=== PATIENT | male | born 1940 | race Caucasian/White ===

== ENCOUNTER → 2016-12-02 | Outpatient (CLI) | payer MEDICARE, OTHER ==
[~2016-12-02] MED LIST: ACET500C5 PO; ASPI81TA3 PO; CARV6.25 PO; COU5 PO; FURO40TA4 PO; LISI2.5T59 PO; NITR4.1S2 TL; RANO10002 PO; SPIR25TA PO; ZOC10 PO
--- NOTE | 2016-12-02 15:53 | RADRPT ---
PROCEDURE: XR right knee. CLINICAL INDICATION: Knee pain TECHNIQUE: AP weightbearing, lateral weightbearing and sunrise views are available for review. COMPARISON: None available FINDINGS: There is moderate to severe osteoarthrosis involving the lateral tibial femoral compartment and mild osteoarthrosis involving the patellofemoral compartment. This is associated with joint space narrow ing, subchondral sclerosis and osteophytosis. There is a small suprapatellar joint effusion. There is otherwise normal mineralization, architecture and alignment. No fractures are identified. No osseous lesions are identified. The soft tissues are unremarkable. IMPRESSION: Moderate to severe osteoarthrosis involving the lateral tibial femoral compartment and mild osteoart hrosis involving the patellofemoral compartment. Small suprapatellar joint effusion RPTAT: HGDB .Enzo Mayfield MD, Date Time Electronically viewed and signed by .Enzo Mayfield MD, on 12/02/2016 15:53 .B/
--- NOTE | 2016-12-03 04:39 | HKNOTE ---
DATE OF SERVICE: 12/02/2016 REFERRING PHYSICIAN: Dr. Alejandro Hughes, [address], [address], [place], [place] , [address]. MAIN COMPLAINT: Pain in the right knee. HISTORY OF MAIN COMPLAINT: The patient is a 76-year-old male who complains of pain in his right kne e. The problem started about 2 years ago when he had a syncopal attack and fell on the ground twist ing his knee. His knee has "never been the same." He was taken to a local hospital, the knee was x -rayed and he was found to have no fractures, but he was told to see an orthopedic surgeon. He saw his winch truck operator, Dr. Hughes, who aspirated the knee and gave him a cortisone injection. This helped a great deal for about 4 months and then the pain started up again. The patient has had an extensi ve course of physical therapy which did not help very much. Dr. Hughes now referred him to me for an orthopedic evaluation. PRESENT COMPLAINTS: The right knee swells. Occasional whole leg swells. The leg feels very unstab le about twice a week. The knee does not lock. The patient gets pain with every step that he takes and he has never felt pain. Once he gets started, he can keep going for quite a while but he has p ain with every step. He uses a cane most of the time. The pain is aggravated by walking and weight bearing and stair climbing. He does get rest pain indicating that the pain wakes him up at night. He has been taking Tramacet for the pain. He has a long history of problems with his lower back. Fede mcdonnell is diagnosed as having spinal arthritis. He has had a lumbar laminectomy and a cervical laminecto my. He gets numbness and tingling in both legs. He limps all the time. The right leg feels shorter than the left leg. He cannot clip his toenails or tie his shoelaces on the right side. SPORTING ACTIVITIES: Sailing. PAST ORTHOPEDIC HISTORY: 1. Lumbar laminectomy 2007 at [facility]. 2. Cervical laminectomy 09/2015 at [place]. PRIOR CORTISONE INTAKE: Only as above. ALCOHOL INTAKE: Two glasses of wine daily or a cocktail. OTHER JOINT PROBLEMS: Right shoulder. BLOOD TESTS FOR ARTHRITIS: None. PRIOR INJURIES TO HIPS OR KNEES: Only as above. WORK STATUS: The patient is retired. PAST MEDICAL HISTORY: Entirely negative other than for his heart disease. PAST SURGICAL HISTORY: 1. Atrioseptal defect repair in 1993. 2. Lumbar spine surgery in 2008. 3. Cervical spine surgery in 2009. 4. Pacemaker implant 2014. DRUG ALLERGIES: NONE. MEDICATIONS: 1. Lisinopril 2.5 mg a.m. 2. Aspirin 81 mg daily. 3. Furosemide 40 mg a daily in the morning. 4. Spironolactone 25 mg daily in the a.m. 5. Carvedilol 6.2 mg twice a day. 6. Warfarin 5 mg once a day. 7. Simvastatin 10 mg once a day. 8. Ranexa 1000 mg twice a day. NOTE: All these medications are related to his heart disease. PRIOR MAJOR INJURIES: None. FAMILY HISTORY: Father at 91. Mother at 89. No . SYSTEMS REVIEW: Has had history of heart symptoms including chest pain, heart attack and skipping h eartbeats. Excess urination. History of varicose veins. Tingling sensations in both legs. Numbne ss both legs. Gait disturbance from his knee arthritis. Currently on Coumadin and warfarin, otherw ise negative. HABITS: The patient smoked 1 pack of cigarettes a day from age 25 to 51. He drinks 2 glasses of wi ne daily at night. SUPERVISOR OF GUIDANCE AND TESTING: Dr. Alejandro Hughes, [address] [place] [id number]. VASCULAR SURGEON: Dr. Christiano Trujillo. PHYSICAL EXAMINATION: GENERAL: The patient is a reasonably youthful 76-year-old male. He walks with a cane. VITAL SIGNS: Height 5 feet 10 inches, weight 224 pounds, blood pressure 110/60, temperature 98.1, p ulse 70 per minute, respirations 12 per minute. GAIT: The patient's gait is severely antalgic. He had a hard time getting from his chair to the ex amination couch and then even more difficult time getting onto the examination couch. HIPS: Both hips have a full range of motion without pain. RIGHT KNEE: Valgus alignment extension lacks 15 degrees. Flexion lacks 25 degrees (pain at limits of motion). 4+ effusion. 6+ crepitus in the knee and none in the patella. LEFT KNEE: The left knee shows normal alignment. Active and passive extension is 0 degrees. Active and passive flexion is 135 degrees. The medial and lateral collateral ligaments and cruciate ligamen ts are intact. Ness test is negative. There is no effusion, tenderness, scarring, crepitus, or cy sts. The patella tracks normally. There is no tenderness on the articular surface of the patella or in the patellar groove. The Q angle is normal. IMAGING: Plain x-rays of his right knee obtained today at the [facility] were re viewed (3 views). These show severe degenerative changes in the lateral compartment of patellofemor al joint. In the patellofemoral joint, there is complete lblm-ks-gbib contact with subchondral scle rosis, intraosseous cyst formation and osteophyte formation. The lateral compartment is almost bone -on-bone with osteophyte formation and subchondral sclerosis. DIAGNOSES: 1. Severe degenerative osteoarthritis of the right knee with failure of conservative treatment. 2. Heart disease (multiple conditions). 3. Obesity. 4. History of cervical and lumbar spine surgery. 5. Pacemaker. 6. Currently on warfarin. MANAGEMENT: The patient is advised that we could continue to nurse him along with cortisone injecti ons if he wishes. However, there is no doubt that the knee arthritis will deteriorate. Regardless even without deterioration, he is quite markedly disabled at the present time, and there is no doubt that he will need to have a right knee replacement sooner or later. The operation of total knee replacement is discussed with him in a fair amount of detail including s ome of the major possible complications. knee arthritis. FINAL DIAGNOSES: 1. Severe degenerative osteoarthritis of the right knee with failure of conservative treatment. 2. Heart disease (multiple conditions). 3. Obesity. 4. History of cervical and lumbar spine surgery. 5. Pacemaker. 6. Currently on warfarin. The patient declined a cortisone injection into the knee today. He would like to think about having the knee replacement surgery fairly soon. He travels a lot, and he states that he would like to so lve the problem once and for all if possible. He will call if and when he wishes to either return f or a cortisone injection or for scheduling for knee replacement surgery. Dictated By: JENIFER HICKMAN/GUILHERME Conf#: [id number] DID#: [id number]
== END | disposition home or self-care (01) ==
LOC: HKI 13:54
DX: M25.561 Pain in right knee (principal); M17.11 Unilateral primary osteoarthritis, right knee; E66.9 Obesity, unspecified; Z95.0 Presence of cardiac pacemaker; Z87.891 Personal history of nicotine dependence
CPT/HCPCS: 73562; G0463

== ENCOUNTER 2016-12-12 17:08 | Emergency (ER) | payer MEDICARE, OTHER ==
[~2016-12-12] VITALS: Ht 170.2 cm; Wt 100.0 kg
[~2016-12-12 17:08] MED LIST changes: -ACET500C5 PO
[2016-12-12 17:12] VITALS: Ht 170.2 cm; Wt 100.0 kg
[2016-12-12] MEDS ORDERED: ACETAMINOPHEN 500 MG TAB PO STA (18:06)
[2016-12-12] MEDS ORDERED: LIDOCAINE 1%/EPI 30 ML INJ INJ STA (18:06)
[2016-12-12] MEDS ORDERED: LIDOCAINE 2%/EPI MPF (SDV) 20 ML VIAL INJ ONE (18:30)
--- NOTE | 2016-12-12 18:38 | ERD ---
ER Documentation Chief Complaint Date/Time DATE: 12/12/16 TIME: 18:36 Chief Complaint mechanical fall takes coumadin and baby asa, LAC on forehead HPI This is a very pleasant 76-year-old male who presents the emergency room with mechanical fall and forehead laceration. Just prior to arrival the patient states that he tripped and fell forward. He does take Coumadin for cardiac issues. Patient has a laceration to his forehead that is bleeding. He denies loss of consciousness, no neck pain. Mild headache that is 3 out of 10. No hand pain wrist pain shoulder pain knee pain or extremity pain. No prodrome of chest pain or shortness of breath. ROS All systems reviewed and are negative except as per history of present illness. Medications Home Meds Active Scripts Acetaminophen* (Tylophen*) 500 Mg Capsule, 2 CAP PO Q8H Y for PAIN AND OR ELEVATED TEMP, #20 CAP Prov:PEDRO DUMONT MD 12/12/16 Furosemide* (Furosemide*) 40 Mg Tablet, 40 MG PO DAILY, #30 TAB Prov:DARSHAN CABRAL MD 04/19/15 Carvedilol* (Coreg*) 6.25 Mg Tab, 6.25 MG PO BID, #60 TAB Prov:DARSHAN CABRAL MD 04/19/15 Ranolazine* (Ranexa*) 1,000 Mg Tab.sr.12h, 1000 MG PO Q12, #60 TAB 2 Refills Prov:DARSHAN CABRAL MD 04/19/15 Reported Medications Nitroglycerin* (Nitrolingual* Florence) 400 mcg/spray - 4.1 GM Florence, 1 SPRAY TL Q5MIN Y for CHEST PAIN, SPRAY 04/17/15 Simvastatin (Simvastatin) 10 Mg Tablet, 10 MG PO HS, TAB 04/17/15 Warfarin Sod (Coumadin) 5 Mg Tablet, 5 MG PO DAILY, TAB 04/17/15 Spironolactone* (Aldactone*) 25 Mg Tablet, 25 MG PO DAILY, TAB 04/17/15 Aspirin* (Aspirin* Chew) 81 Mg Tab.chew, 81 MG PO DAILY, TAB.CHEW 04/17/15 Lisinopril* (Lisinopril*) 2.5 Mg Tablet, 2.5 MG PO DAILY, TAB 04/17/15 Allergies Allergies: Coded Allergies: No Known Allergy (Unverified , 10/7/15) PMhx/Soc History of Surgery: Yes (CABG BACK SURG) Anesthesia Reaction: No Hx Neurological Disorder: No Hx Respiratory Disorders: Yes (COPD) Hx Cardiac Disorders: Yes (UT, CAD, HTN, CHF HIGH LIPIDS, AFIB,AICD) Hx Psychiatric Problems: No Hx Miscellaneous Medical Probl: Yes Hx Alcohol Use: Yes Hx Substance Use: No Hx Tobacco Use: No FmHx Family History: No diabetes Physical Exam Vitals Vital Signs Date Time Temp Pulse Resp B/P Pulse Ox O2 Delivery O2 Flow Rate FiO2 12/12/16 19:45 72 16 122/66 99 Room Air 12/12/16 17:12 98.1 70 18 110/61 98 Physical Exam Airway is intact Bilateral breath sounds Strong distal pulses No obvious deficits General: Well developed, well nourished, no acute distress Head: Right frontal forehead hematoma with associated laceration as documented below Eyes: Pupils equally reactive, EOM intact ENT: Moist mucous membranes Neck: Supple, no lymphadenopathy, No midline tenderness, deformities, step-offs to the cervical spine, full active and passive range of motion without midline pain. Respiratory: Lungs clear bilaterally, no distress, no chest wall tenderness, no crepitus Cardiovascular: RRR, no murmurs, rubs, or gallops Abdominal: Soft, non-tender, non-distended, no peritoneal signs, pelvis is stable : Deferred MSK: No edema, no unilateral swelling, 5/5 strength, no midline tenderness deformities or step-offs to the thoracolumbar spine Neurologic: Alert and oriented, moving all extremities, normal speech, no focal weakness, no cerebellar signs Skin: An approximate 3.0 cm laceration that is oblique to the right forehead, base of the wound is visualized, mild oozing is noted but no arterial hemorrhage. Jagged edge. Psych: Normal mood Results 24 hrs Laboratory Tests Test 12/12/16 18:15 Prothrombin Time 29.6Sec Prothrombin Time Ratio 2.3 INR International Normalized Ratio 2.77 Activated Partial Thromboplast Time 36.5Sec Current Medications Medications (Trade) Dose Ordered Sig/Briana Route PRN Reason Start Time Stop Time Status Last Admin Dose Admin Lidocaine/ Epinephrine (Xylocaine 1%/ Epi) 30 ml ONCE STAT INJ 12/12/16 18:06 6/3/17 18:08 DC Acetaminophen (Tylenol Tab) 1,000 mg ONCE STAT PO 12/12/16 18:06 12/12/16 18:08 DC 12/12/16 18:19 Lidocaine/ Epinephrine (Xylocaine 2%/ Epi Mpf(Sdv)) 20 ml ONCE ONCE INJ 12/12/16 18:30 12/12/16 18:31 DC Procedures/MDM EKG, MONITORS, & DIAGNOSTIC IMAGING: CT brain: IMPRESSION: Generalized cerebral atrophy appropriate for the patient's provided age with no evidence of acute intracranial abnormality or mass effect. PROCEDURES: Laceration Note: The patient was verbally consented prior to procedure and understands the risks , benefits, and alternatives. The patient is agreeable to procedure and has given verbal consent. Length: 3.0 cm Irrigation: Thorough irrigation was performed with pressure is normal saline Inspection: There is no evidence of deep tissue or structural injury, no evidence of foreign bodies Anesthesia: 2% career guidance technician with epinephrine approximately 5 cc Repair: Single-layer repair using 5. 0 Ethilon simple interrupted sutures a total of 6 sutures used with good approximation A clean dressing was applied. The patient tolerated the procedure well with no complications. LAB INTERPRETATION: INR therapeutic MEDICAL DECISION MAKING: Patient with closed head injury. No evidence of seizures syncope or arrhythmia. No prodrome of chest pain or shortness of breath. Close head injury without loss of consciousness. The patient does not meet high-risk criteria and based on NEXUS cervical spine criteria there is no indication for cervical spine imaging at this time. Tetanus up-to-date. ER COURSE: Tylenol provided. Wound care provided as documented above. INR and CT brain ordered. Patient continues to be well-appearing his INR is therapeutic. We discussed return precautions for signs of delayed hemorrhage. The patient is safe for discharge and steady on his feet. Suture removal in 5 days. I kept the patient and/or family informed of laboratory and diagnostic imaging results throughout the emergency room course. DISPOSITION PLAN: We discussed follow up with the patient's primary care doctor within 24 to 48 hours as needed. We also discussed return to the emergency room for worsening symptoms or worsening condition. Outpatient referral: [None required] Discharge Medications: Tylenol Departure Diagnosis: Primary Impression: Closed head injury Encounter type: initial encounter Qualified Code: S09.90XA - Closed head injury, initial encounter Additional Impression: Forehead laceration Encounter type: initial encounter Qualified Code: S01.81XA - Forehead laceration, initial encounter Condition: Stable PEDRO DUMONT MD Dec 12, 2016 18:38
[2016-12-12 18:39] LABS: INR 2.77; PROTIME 29.6 Sec (12.2-14.2); PT RATIO 2.3
[2016-12-12 18:40] LABS: PARTIAL THROMBOPLASTIN TIME 36.5 Sec (25.0-35.0)
--- NOTE | 2016-12-12 19:32 | RADRPT ---
PROCEDURE: CT brain without contrast CLINICAL INDICATION: Post traumatic headaches TECHNIQUE: A CT of the brain was performed utilizing axial sections from the skull base through th e vertex without contrast. Sagittal and coronal images were also reformatted. The exam CTDIvol = 43. 48 mGy and DLP = 720.23 mGy-cm. COMPARISON: None available FINDINGS: No acute intracranial hemorrhage is identified. There is no mass effect or midline shift. No extra -axial fluid collection is seen. The ventricles and sulci are normal in size and configuration for the patient's provided age of 76 years consistent with age-appropriate generalized atrophy. Low att enuation of the periventricular subcortical white matter is nonspecific, likely the sequela of chron ic small vessel ischemia. Hernández-white differentiation is preserved with no findings to suggest an ac agdaagux ischemic infarct. The fourth ventricle is midline and there is no density alteration within the sae or cerebellum. The osseous structures are unremarkable. The mastoid air cells and visualized paranasal sinuses are clear. RPTAT:HJJR IMPRESSION: Generalized cerebral atrophy appropriate for the patient's provided age with no evidence of acute in tracranial abnormality or mass effect. Physician Nunu Date Time Electronically viewed and signed by Physician Nunu on 12/12/2016 19:32 /
[2016-12-12 19:45] VITALS: BP 122/66; PULSE 72; RESP 16
[2016-12-12] MEDS ORDERED: ACET500C5 PO (19:51)
== END 2016-12-12 19:57 | disposition home or self-care (01) ==
LOC: E/R 17:08
DX: S09.90XA Unspecified injury of head, initial encounter (principal); I10 Essential (primary) hypertension; I25.10 Atherosclerotic heart disease of native coronary artery without angina pectoris; I50.9 Heart failure, unspecified; J44.9 Chronic obstructive pulmonary disease, unspecified; W01.0XXA Fall on same level from slipping, tripping and stumbling without subsequent striking against object, initial encounter; Y92.9 Unspecified place or not applicable; Z79.01 Long term (current) use of anticoagulants; Z79.82 Long term (current) use of aspirin; Z95.1 Presence of aortocoronary bypass graft
CPT/HCPCS: 70450; 85610; 85730

== ENCOUNTER 2017-04-23 06:29 | Day surgery (SDC) | payer MEDICARE, OTHER ==
[2017-04-22 09:55] VITALS: Ht 177.8 cm; Wt 103.0 kg
[2017-04-23] VITALS (21 sets, daily range): BP systolic 83–121; BP diastolic 47–74; PULSE 68–75; RESP 16–28
[~2017-04-23] VITALS: Ht 177.8 cm; Wt 103.0 kg
[~2017-04-23 06:29] MED LIST changes: +ACET500C5 PO
--- NOTE | 2017-04-23 07:32 | RADRPT ---
PROCEDURE: XR Chest. CLINICAL INDICATION: Preoperative TECHNIQUE: Single frontal view of the chest was obtained COMPARISON: 04/19/2015 FINDINGS: The heart is enlarged. The thoracic aorta is calcified. There is a left-sided AICD in place. The lungs are clear. There is no pleural effusion or pneumothorax. RPTAT: AA IMPRESSION: Unchanged moderate to marked cardiomegaly. Calcified aorta consistent with atherosclerotic disease. .Esteban Maria MD, MD Date Time Electronically viewed and signed by .Esteban Maria MD, on 04/23/2017 07:32 .S/
[2017-04-23 07:58] LABS: BASOPHILS % 0.4 % (0.0-2.0); EOSINOPHILS # 0.3 10^3/ul (0.0-0.5); EOSINOPHILS % 5.1 % (0.0-7.0); HEMOGLOBIN 13.3 g/dl (14.0-18.0); LYMPHOCYTES # 0.8 10^3/ul (0.8-2.9); LYMPHOCYTES % 15.6 % (15.0-51.0); MEAN CORPUSCULAR HEMOGLOBIN 32.4 pg (29.0-33.0); MEAN CORPUSCULAR HGB CONC 34.1 g/dl (32.0-37.0); MEAN CORPUSCULAR VOLUME 94.9 fl (82.0-101.0); MEAN PLATELET VOLUME 11.3 fl (7.4-10.4); MONOCYTE # 0.7 10^3/ul (0.3-0.9); MONOCYTES % 13.6 % (0.0-11.0); NEUTROPHIL # 3.3 10^3/ul (1.6-7.5); NEUTROPHILS % 64.9 % (39.0-77.0); PLATELET COUNT 123 10^3/UL (140-415); POSITIVE DIFF @See below; RED BLOOD COUNT 4.11 10^6/ul (4.70-6.10); RED CELL DISTRIBUTION WIDTH 14.1 % (11.5-14.5); WHITE BLOOD COUNT 5.1 10^3/ul (4.8-10.8)
[2017-04-23 08:15] LABS: INR 1.54; PT RATIO 1.5
[2017-04-23 08:16] LABS: PARTIAL THROMBOPLASTIN TIME 31.8 Sec (25.0-35.0)
[2017-04-23 08:23] LABS: PROTIME 18.6 Sec (12.2-14.2)
[2017-04-23 08:25] LABS: CALCIUM 9.3 mg/dl (8.4-10.2); CREATININE 1.18 mg/dl (0.61-1.24)
[2017-04-23 08:27] LABS: POTASSIUM 5.2 mmol/L (3.5-5.1)
[2017-04-23 08:37] LABS: CHOL/HDL RATIO 2.1 RATIO
[2017-04-23 08:51] LABS: EOSINOPHILS % (M) 5 % (0-7); MONOCYTES % (M) 14 % (0-11); PLATELET ESTIMATE DECREASED; POLYCHROMASIA 2+ (0-0)
[2017-04-23] MEDS ORDERED: FENTAnyl 50 MCG/ML VIAL ONE (09:17)
[2017-04-23] MEDS ORDERED: HEPARIN 1000 UNITS/ML 10 ML INJ ONE (09:17)
[2017-04-23] MEDS ORDERED: MIDAZOLAM 1 MG/ML 2 ML INJ ONE (09:17)
[2017-04-23] MEDS ORDERED: IODIXANOL LOCM 100 ML BTL ONE (09:17)
[2017-04-23] MEDS ORDERED: LIDOCAINE 1% (MDV) 20 ML INJ ONE (09:17)
[2017-04-23] MEDS ORDERED: NITROGLYCERIN (IC) 100 MCG/ML INJ ONE (09:18)
[2017-04-23] MEDS ORDERED: VERAPAMIL 5 MG INJ ONE (09:18)
[2017-04-23] MEDS ORDERED: ADENOSINE 90 MG in SOD CHLORIDE 0.9% 90 ML IV ONE (10:30)
--- NOTE | 2017-04-23 10:59 | SIPON ---
Date/Time of Note Date/Time of Note DATE: 04/23/17 TIME: 10:58 Operative Report Preoperative Diagnosis 1.abnl mpi Postoperative Diagnosis 1.Patent LAD stent with moderate nonobstructive cad Operation/Procedure Performed 1.[facility] 2.FFR LAD Surgeon see signature line safety admin assistant Osiel Anesthesia: moderate sedation Estimated blood loss: minimal Transfusion Required none Specimen NA Grafts/Implants none Complications none DIANA ROSA Apr 23, 2017 10:59
[2017-04-23] MEDS ORDERED: morphine 2 MG INJ IV PRN (11:00)
[2017-04-23] MEDS ORDERED: SOD CHLORIDE 0.9% 1,000 ML IV SCH (11:00)
[2017-04-23] MEDS ORDERED: AL HYDROX/MG HYDROX/SIMETH 30 ML CUP PO PRN (11:00)
[2017-04-23] MEDS ORDERED: ACETAMINOPHEN 325 MG TAB PO PRN (11:00)
[2017-04-23] MEDS ORDERED: ONDANSETRON 4 MG INJ IV PRN (11:00)
--- NOTE | 2017-04-23 11:56 | CARRPT ---
DATE OF PROCEDURE: 04/23/2017 TYPE OF PROCEDURE: 1. Left heart catheterization. 2. Coronary angiography. 3. FFR in the LAD. 4. Moderate conscious sedation. ATTENDING PHYSICIAN: Diana Trujillo MD REFERRING PHYSICIAN: Self-referred. INDICATION: Chest pain with positive stress test for anterior ischemia, high risk marker for cardio vascular events. TYPE OF ANESTHESIA: Conscious and local. BRIEF HISTORY: Mr. Chang is a 76-year-old male with history of hypertension, dyslipidemia, coronary artery disease, status post prior PTCA and stent placement to LAD, and cardiomyopathy with severely depressed left ventricular ejection fraction and ICD, who initially presented with complaints of dy spnea on exertion, chest pain and underwent a cardiac stress test revealing anterior ischemia. Give n these findings, the patient was referred for and presents today in order to undergo left heart cat heterization to assess for the possibility of significant obstructive coronary artery disease lendin g to symptoms of chest pain, shortness of breath and positive stress test findings in a preoperative patient. PROCEDURE: After informed consent was obtained, the patient was brought to the [facility] cardiac catheterization lab where his right radial wrist area was prepped and draped in the usual sterile fashion. Lidocaine 2% was infiltrated in the right radial area in order to achieve a dequate anesthesia. Using modified Seldinger technique, the right radial artery was cannulated and a 6-Macanese arterial sheath was placed. A 6-Macanese JL3.5 catheter was used to cannulate the left jeyson n coronary ostium. With contrast injection, multiple left coronary arterial system were obtained. JL3.5 was moved over a guidewire and a JR4 was used to cannulate the right coronary arterial ostium. With contrast injection, multiple views of the right coronary arterial system obtained. JR4 was r emoved over a guidewire and a 6-Macanese pigtail was passed down the ascending aorta and used to measu re the left ventricular end-diastolic pressure and pulled back across the aortic valve to assess for significant gradient, which was now removed. Subsequently, at this time, given the findings of int ermittent lesion in a somewhat hazy appearance, the patient's LAD, we moved directly into an interve ntional procedure. The patient received an additional 2000 units of heparin in addition to the radi al cocktail he received at the onset of the procedure with 2.5 verapamil and 200 mcg of nitroglyceri n, but did not receive previous heparin due to moderately elevated INR 1.59. Subsequently, at this time, an Q3 guide was used to cannulate the left main coronary ostium. A pressure guidewire was pas sed distal to the lesion. Initially we attempted to do an IFR which posed unsuccessful due to equip ment malfunction. Subsequently we changed to FFR and the patient received 140 mcg of adenosine x3 m inutes, achieving adequate hyperemia and a result of 0.85, not consistent with a flow-limiting lesio n. Subsequently, at this time, the pressure wire was removed. Followup angiogram was obtained to a ssure that no complication occurred from this procedure, which had not any catheters were removed. The patient's sheath was removed. TR band was applied. This completed the procedure. There were n o noted complications. FINDINGS: CORONARY ANGIOGRAPHY: Left main 5 mm, no significant stenoses. Circumflex proximally is a 3.5 mm v essel and has a 20% ostial stenosis and a 20% to 30% mid distal stenosis. The circumflex is a codom inant vessel and therefore gives off a left-sided PDA approximately 2.5 mm with no significant focal stenoses. The LAD proximally is a 4 mm vessel and has a very large stent in its proximal and mid p ortion with a pretty significant step down of the stent and distal edge and then thereafter there is somewhat hazy appearance of the vessel. The remainder of the LAD thereafter is free of any signifi cant focal stenoses. There is a diagonal 2.5 mm with an ostial 30% to 40% stenosis. The right yuan nary artery proximally is a 3 mm vessel and in its midportion has mild luminal irregularities up to approximately 40%. It is a codominant vessel and therefore gives off a small posterolateral branch and PDA to approximately about 2 mm with no significant focal stenoses. Measurement of left ventricular end diastolic pressure, 17. No significant aortic stenosis by gradi ent. FFR performed in the LAD, achieved a result of 0.85, not consistent with a flow-limiting lesion. TOTAL FLUOROSCOPY TIME: 11 minutes. TOTAL CONTRAST: 100 mL. IMPRESSION: 1. Moderate stenosis in the LAD with nonsignificant FFR result. 2. Widely patent left anterior descending stent with a moderate step down at the distal end. 3. High normal left heart filling pressures. 4. No significant aortic stenosis by gradient. RECOMMENDATIONS: In light of procedure findings at this time would: 1. Maximize medical management. 2. Aggressive risk factor reduction. 3. The patient will be readmitted to the same day surgery center for post-cath observation with dis charge later this afternoon. Dictated By: DIANA TAI/GUILHERME Conf#: [id number] DID#: [id number]
--- NOTE | 2017-04-23 16:08 | RADRPT ---
Vent Rate: 70 bpm RR Interval: 0 msec [place] Interval: 0 msec QRS Duration: 170 msec QT Interval: 488 msec QTC Interval: 527 msec P-R-T [place]: 0 - -83 - 80 degrees Electronic ventricular pacemaker Electronically Signed By: Huey Lou [id number]
== END 2017-04-23 14:50 | disposition home or self-care (01) ==
LOC: SDS 06:29
PROVIDERS: ATTEND Internal Medicine
DX: R07.9 Chest pain, unspecified (principal); R94.39 Abnormal result of other cardiovascular function study
CPT/HCPCS: 71010; 80048; 80061; 85025; 85610; 85730; 93005; 93458; 93571; C1887; J0153; J1644; J2250; J3010; Q9967

== ENCOUNTER → 2017-09-24 | Outpatient (CLI) | END | disposition home or self-care (01) ==

== ENCOUNTER 2017-09-27 01:54 | Emergency (ER) | END 2017-09-27 04:38 | disposition home or self-care (01) ==

== ENCOUNTER → 2017-10-08 | Outpatient (CLI) | END | disposition home or self-care (01) ==

== ENCOUNTER → 2017-10-11 | Outpatient (CLI) | END | disposition home or self-care (01) ==

== ENCOUNTER 2017-10-23 09:24 | Inpatient (IN) | END 2017-10-25 16:40 | DRG 470 ==

== ENCOUNTER → 2017-11-01 | Outpatient (CLI) | END | disposition home or self-care (01) ==

== ENCOUNTER 2018-03-28 06:23 | Emergency (ER) | END 2018-03-28 08:10 | disposition home or self-care (01) ==

== ENCOUNTER → 2018-06-06 | Outpatient (CLI) | END | disposition home or self-care (01) ==

== ENCOUNTER 2019-01-31 10:23 | Day surgery (SDC) | payer MEDICARE, OTHER ==
[2019-01-31] VITALS (20 sets, daily range): BP systolic 98–118; BP diastolic 55–68; PULSE 68–75; RESP 14–46; Ht 175.3 cm; Wt 104.4 kg
[~2019-01-31] VITALS: Ht 175.3 cm; Wt 104.4 kg
[~2019-01-31 10:23] MED LIST changes: -ACET500C5 PO; +ASPI-903 PO; -ASPI81TA3 PO
[2019-01-31] MEDS ORDERED: LISI2.5T59 PO (10:54)
[2019-01-31] MEDS ORDERED: FURO40TA4 PO (10:54)
[2019-01-31] MEDS ORDERED: SPIR25TA PO (10:55)
[2019-01-31] MEDS ORDERED: CARV6.2579 PO (10:55)
[2019-01-31] MEDS ORDERED: RANO10002 PO (10:56)
[2019-01-31] MEDS ORDERED: WARF5TAB PO (11:01)
[2019-01-31] MEDS ORDERED: WARF2.5T PO (11:01)
[2019-01-31] MEDS ORDERED: ASPI81TA52 PO (11:01)
[2019-01-31] MEDS ORDERED: SIMV10TA PO (11:02)
[2019-01-31] MEDS ORDERED: HEPARIN 1000 UNITS/ML 10 ML INJ ONE (11:57)
[2019-01-31] MEDS ORDERED: MIDAZOLAM 1 MG/ML 2 ML INJ ONE (11:58)
[2019-01-31] MEDS ORDERED: VERAPAMIL 5 MG INJ ONE (11:58)
[2019-01-31] MEDS ORDERED: LIDOCAINE 1% (MDV) 20 ML INJ ONE (11:58)
[2019-01-31] MEDS ORDERED: IODIXANOL LOCM 100 ML BTL ONE (11:58)
[2019-01-31] MEDS ORDERED: FENTAnyl 50 MCG/ML VIAL ONE (11:58)
[2019-01-31] MEDS ORDERED: NITROGLYCERIN (IC) 100 MCG/ML INJ ONE (11:59)
[2019-01-31] MEDS ORDERED: DIAZEPAM 5 MG TAB PO ONE (12:00)
[2019-01-31] MEDS ORDERED: SOD CHLORIDE 0.45% 1,000 ML IV SCH (12:00)
[2019-01-31] MEDS ORDERED: FAMOTIDINE 20 MG TAB PO ONE (12:00)
[2019-01-31] MEDS ORDERED: DIPHENHYDRAMINE 50 MG CAP PO ONE (12:00)
[2019-01-31] MEDS ORDERED: BIVALIRUDIN 250MG /NS 50 ML 50 ML IVPB ONE (13:27)
[2019-01-31] MEDS ORDERED: ADENOSINE 30 ML ONE (13:32)
[2019-01-31] MEDS ORDERED: SOD CHLORIDE 0.9% 1,000 ML IV SCH (13:56)
--- NOTE | 2019-01-31 13:56 | SIPON ---
Date/Time of Note Date/Time of Note DATE: 01/31/19 TIME: 13:55 Operative Report Preoperative Diagnosis 1.chest pain 2.cardiomyopathy 3.abnl stress test Postoperative Diagnosis 1.non-obstructive cad Operation/Procedure Performed 1.C 2.FFR LAD Surgeon see signature line clinical physician assistant 1.Armani Anesthesia: moderate sedation Estimated blood loss: minimal Transfusion Required none Specimen none Grafts/Implants none Complications none DIANA ROSA Jan 31, 2019 13:56
[2019-01-31] MEDS ORDERED: ONDANSETRON 4 MG INJ IV PRN (14:00)
[2019-01-31] MEDS ORDERED: AL HYDROX/MG HYDROX/SIMETH 30 ML CUP PO PRN (14:00)
[2019-01-31] MEDS ORDERED: morphine 2 MG INJ IV PRN (14:00)
[2019-01-31] MEDS ORDERED: ACETAMINOPHEN 325 MG TAB PO PRN (14:00)
--- NOTE | 2019-02-01 06:28 | CARRPT ---
DATE OF PROCEDURE: 01/31/2019 TYPE OF PROCEDURE: 1. Left heart catheterization. 2. Coronary angiography. 3. Fractional flow reserve performed in left anterior descending. 4. Moderate conscious sedation. 5. Measurement of left end diastolic pressure. ATTENDING PHYSICIAN: Diana Trujillo MD REFERRING PHYSICIAN: Self-referred. INDICATION: Cardiomyopathy with decreased left ventricular ejection fraction with chest pain during stress test findings positive for anterior ischemia. TYPE OF ANESTHESIA: Conscious and local. BRIEF HISTORY: Mr. Chang is a 78-year-old male with history of hypertension, dyslipidemia, coronary artery disease with status post prior stent to LAD with severe cardiomyopathy, last known ejection fraction of 20 to 25%, status post biventricular ICD, who presented with complaints of worsening dyspnea on exertion and underwent positive stress test for anterior ischemia and now presenting for left heart catheterization. PROCEDURE: After informed consent was obtained he presented to [facility] cardiac catheterization lab where his right radial area was prepped and draped in a sterile fashion, 2% lidocaine was infiltrated into the right radial area in order to achieve adequate anesthesia. Using the modified Seldinger technique, the radial artery was cannulated and a 6-Turkish arterial sheath was placed. A 6-Turkish JL3.5 catheter was used to cannulate the left main coronary ostium with contrast injection, most recent coronary system were obtained. JL 3.5 was removed over a guidewire and a JR4 was used to cannulate the right coronary arterial ostium with contrast injection, multiple views of the right coronary system were obtained. A JR4 was removed over a guidewire and a 6-Turkish pigtail was passed up in the aorta, placed in the LV. The LVEDP was measured and the catheter was subsequently pulled back across the aortic valve and removed. Subsequently, at this time, we moved directly into an interventional procedure. The patient had a Q3 guide used to cannulate the left main coronary ostium. The patient was given Angiomax bolus continuous infusion. A 0.014 pressure guidewire was passed distal to the lesion LAD. The patient first had IFR performed, achieving result of 0.92 above the level for a flow- limiting lesion and then had FFR with 140 mcg/kg per minute of adenosine x3-1/2 minutes in order to achieve adequate hyperemia, achieving a level 0.87, not consistent with flow-limiting lesion. Subsequently, at this time, the patient did have guidewires were removed. Final angiographic images were obtained to assure that no complication occurred from this FFR procedure, which had not, and they were removed. Subsequently, the patient's sheath was removed. TR band was applied. There were no noted complications. FINDINGS: 1. Coronary angiography: Left main short 4.5 mm, no significant stenoses. Circumflex proximally 3.5 mm vessel in its proximal portion has a 30% stenosis. Remainder of the circumflex is free from focal stenoses. 2. The circ continuation AV groove in the mid portion has a mild stenosis. There is a very high branching obtuse marginal 3 mm with no significant focal stenoses and then a mid-branching obtuse marginal 2.5 mg and 2 daughter branches with the most superior daughter branch having a 20% stenosis. 3. The circumflex is a codominant vessel and therefore gives off a left-sided PDA, 2.5 mm with a 20% stenosis. Left thigh posterolateral branch sub 2 mm vessel with no significant focal stenoses. The LAD proximally is a 3.5 mm vessel and its proximal portion has a widely patent stent within, has a significant stepdown in the distal stent just going right into the bifurcation of an LAD and diagonal with questionable proximal 50% stenosis in the LAD but RYANN 3 flow just at the bifurcation; the diagonal bifurcates midway through it. 4. A 2.5 vessel and a diagonal has an ostial 30-40% stenosis. 5. Right coronary artery proximally is a 2.5 mm vessel and its midportion has a 40% stenosis. 6. Gives off a very small PDA, a sub 2 mm vessel with moderate diffuse disease, no focal stenoses and a very small posterolateral branch sub 2 mm vessel and no significant focal stenosis. FFR performed in LAD achieved a result of 0.87 after 140 mcg/kg per minute x3-1/2 minutes to achieve adequate hyperemia and an IFR result of 0.92, both above the level for a flow-limiting lesion. 7. Left ventricular end diastolic pressure off of LVEDP of 20-21. No significant aortic stenosis by gradient. TOTAL FLUOROSCOPY TIME: 10.6 minutes. TOTAL CONTRAST: 150 mL. IMPRESSION: 1. Moderate nonobstructive coronary artery disease primarily involving the LAD lesion with FFR and IFR results, both above the level for a flow-limiting lesion. 2. Widely patent proximal left anterior descending stent with significant step down distal in the stent. 3. Mildly elevated left heart filling pressures. 4. No significant aortic stenosis by gradient. RECOMMENDATIONS: In light of procedure and findings at this time, we would: 1. Maximize medical management. 2. Aggressive risk factor reduction. 3. The patient will be readmitted to same day surgery center for post- catheterization. 4. Continue managing pain symptoms with probable discharge later this afternoon. Dictated By: DIANA TAI/GUILHERME Conf#: [id number] DID#: [id number] MTDD
== END 2019-01-31 19:03 | disposition home or self-care (01) ==
LOC: SDS 10:23
PROVIDERS: ATTEND Internal Medicine
DX: I25.10 Atherosclerotic heart disease of native coronary artery without angina pectoris (principal); E78.5 Hyperlipidemia, unspecified; R94.39 Abnormal result of other cardiovascular function study; I42.9 Cardiomyopathy, unspecified; I11.0 Hypertensive heart disease with heart failure; I50.9 Heart failure, unspecified; E78.00 Pure hypercholesterolemia, unspecified; Z79.82 Long term (current) use of aspirin; F17.200 Nicotine dependence, unspecified, uncomplicated; Z95.810 Presence of automatic (implantable) cardiac defibrillator
CPT/HCPCS: 71045; 80048; 80061; 85025; 85610; 85730; 93005; 93458; 93571; C1769; C1887; J0153; J0583; J1644; J2250; J3010; Q9967

== ENCOUNTER 2019-03-11 11:40 | Emergency (ER) | payer MEDICARE, OTHER ==
[~2019-03-11] VITALS: Ht 177.8 cm; Wt 95.0 kg
[~2019-03-11 11:40] MED LIST changes: -ASPI-903 PO; +ASPI81TA52 PO; -CARV6.25 PO; +CARV6.2579 PO; -COU5 PO; -NITR4.1S2 TL; +SACU1TAB PO; +SIMV10TA PO; +WARF2.5T PO; +WARF5TAB PO; -ZOC10 PO
[2019-03-11 11:51] VITALS: Ht 177.8 cm; Wt 95.0 kg
[2019-03-11 13:00] VITALS: BP 96/62; PULSE 72; RESP 16
== END 2019-03-11 15:14 | disposition home or self-care (01) ==
LOC: E/R 11:40
DX: N17.9 Acute kidney failure, unspecified (principal); I95.9 Hypotension, unspecified; I50.9 Heart failure, unspecified; Z79.82 Long term (current) use of aspirin; Z79.01 Long term (current) use of anticoagulants; Z95.0 Presence of cardiac pacemaker; Z87.891 Personal history of nicotine dependence
CPT/HCPCS: 36415; 71045; 80048; 84484; 85025; 93005